=== PATIENT | female | born 1995 | race African-American/Black ===

== ENCOUNTER 2017-06-15 08:26 | Emergency (ER) | payer BC, MEDICAID ==
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
[2017-06-15 09:22] VITALS: BP 122/84
== END 2017-06-15 09:22 | disposition home or self-care (01) ==
LOC: ER 08:26
DX: M54.6 Pain in thoracic spine (principal); V86.55XA Driver of 3- or 4- wheeled all-terrain vehicle (ATV) injured in nontraffic accident, initial encounter; Y93.I9 Activity, other involving external motion

== ENCOUNTER 2017-06-25 00:35 | Emergency (ER) | payer BC ==
[2017-06-25] MEDS ORDERED: PENICILLIN G BENZATHINE 2 ML SYRG IM ONE (01:23)
[2017-06-25] MEDS ORDERED: HYDROcodone/ACETAMINOPHEN 1 EACH TABLET PO ONE (01:23)
[2017-06-25] MEDS ORDERED: predniSONE 20 MG TABLET PO ONE (01:24)
[2017-06-25] MEDS ORDERED: ALBUTEROL SULFATE/IPRATROPIUM 3 ML NEBU IH ONE ×2 (01:24→01:26)
[2017-06-25] MEDS ORDERED: HYDROcodone/ACETAMINOPHEN 1 EACH TABLET ONE (01:25)
[2017-06-25] MEDS ORDERED: AMOXICILLIN TRIHYDRATE 250 MG CAPSULE PO ONE (01:25)
[2017-06-25] MEDS ORDERED: AMOXICILLIN TRIHYDRATE 250 MG CAPSULE ONE (01:27)
[2017-06-25] MEDS ORDERED: predniSONE 20 MG TABLET ONE (01:27)
--- NOTE | 2017-06-25 01:41 | ERNOTE ---
Date of Service: 06/25/17 Time Seen by Provider: 06/25/17 01:34 Stated Complaint: SORE THROAT Presenting Symptoms:: cough, sore throat Source: patient Immunizations: IMMUNIZATION HX Immunizations Up to Date Yes History of Influenza Vaccine No Hx Pneumococcal Vaccination No Allergies/Adverse Reactions: Allergies No Known Allergies Allergy (Verified 06/25/17 01:00) Home Medications: HOME MEDICATIONS Amoxicillin Trihydrate [Amoxil] 500 mg PO Q8H #21 capsule 06/25/17 [Last Taken Unknown] predniSONE [Deltasone] 60 mg PO DAILY #5 tablet 06/25/17 [Last Taken Unknown] - History of Present Ilness Narrative: 22-year-old female comes to the emergency department complaining of coughing which started early this afternoon. She is also complaining of a sore throat. Coughing paroxysms of gotten so bad that she is unable to sleep. She has not had a fever. She doesn't have any chest pain. She has no other complaints. She has no history of asthma. She does not smoke. Review of Systems - Review of Systems Constitutional: Present: no symptoms reported EYE: Present: no symptoms reported ENT: Present: See HPI Respiratory: Present: See HPI, cough Cardiology: Present: no symptoms reported Gastrointestinal/Abdominal: Present: no symptoms reported Genitourinary: Present: no symptoms reported Musculoskeletal: Present: no symptoms reported Skin: Present: no symptoms reported Neurological: Present: no symptoms reported Endocrine: Present: no symptoms reported Hematologic/Lymphatic: Present: no symptoms reported Psych: Present: no symptoms reported All Other Systems: All systems neg except as marked - Patient's Past Medical History Patient History - Medical: No pertinent hx Patient History - Cardiac/Respiratory: No pertinent hx Patient History - Cancer: No Hx of Cancer Patient History - Surgical Procedures: No surgical history Patient History - Other: None LMP (females 10-50): last week - Social History Living Situations: home Abuse History: No History of abuse Psych History: No pertinent hx Smoking Status: Never smoker Alcohol Use: none Drug Use: none - Immunizations Immunizations Up to Date: Yes Hx Pneumococcal Vaccination: No History of Influenza Vaccine: No Physical Exam - Physical Exam General Appearance: Present: wd/wn, alert, no apparent distress Head Exam: Present: normal inspection, no evidence of injury Eye Exam: Normal inspection: bilateral, PERRL: bilateral Ears, Nose, Throat: Present: tonsillar exudate, other - patient has significant tonsillar hypertrophy. The pharynx is not very erythematous but does have tonsillar exudate. He has swollen nodes in the submandibular area Neck: Present: other - swollen nodes in the anterior chain and submandibular area Respiratory: Present: other - patient has some wheezes left side greater than right. Slightly prolonged expiratory phase Cardiovascular/Chest: Present: regular rate, rhythm, no murmur, normal peripheral pulses Gastrointestinal/Abdominal: Present: normal bowel sounds, nontender, nondistended, soft, no organomegaly Back Exam: Present: normal inspection, normal range of motion Extremity Exam: Present: normal inspection, non-tender Neurological Exam: Present: alert, oriented, normal mood/affect, no motor/ sensory deficits Skin Exam: Present: normal color, warm/dry Lymphatic Exam: Present: no adenopathy ED Progress - Vital Signs Patient's Vital Signs:: I have reviewed the patient's vital signs. Vital Signs: Vital Signs 06/25/17 06/25/17 01:00 01:27 Temperature 36.7 C Pulse Rate 104 H 85 Respiratory 18 18 Rate Blood Pressure 125/75 O2 Sat by Pulse 97 95 Oximetry - Progress/Reassessment Chief Complaint: Cough Progress:: Improved Progress Note-Subjective: 06/25/17 01:36 Slightly better after breathing treatment Departure Clinical Impression: Upper respiratory infection - Departure Disposition: Home self-care Condition: Good Instructions: Upper Respiratory Infection, Adult, [id number] Additional Instructions: As we discussed U have some mild swelling of her tonsils and there is some pus on them. This may indicate a strep infection even though the strep swab was negative. Consequently I want you to take the prescribed amoxicillin for all 7 days. You do have some wheezing in her lungs. This is indication that there is inflammation of the breathing tubes. Take the prescribed steroids to help with this. I have also given you a prescription for an inhaler which he can use to help. I really believe that your symptoms are due to a viral respiratory infection. From experience this will likely last for several weeks. The steroids may help. I want you call your family doctor and set up a follow-up appointment. Next Return for new or worrisome symptoms Referrals: Kate Berrios FNP [Primary Care Provider] - Prescriptions: Amoxicillin Trihydrate [Amoxil] 500 mg PO Q8H #21 capsule predniSONE [Deltasone] 60 mg PO DAILY #5 tablet
[2017-06-25 01:48] VITALS: BP 96/81
== END 2017-06-25 01:42 | disposition home or self-care (01) ==
LOC: ER 00:35
DX: J06.9 Acute upper respiratory infection, unspecified (principal)

== ENCOUNTER 2017-07-22 19:07 | Emergency (ER) | payer BC ==
[2017-07-22 19:17] VITALS: BP 114/79
[2017-07-22] MEDS ORDERED: HYDROmorphone HCL 1 MG/ML DISP.SYRIN IM ONE (19:46)
[2017-07-22] MEDS ORDERED: KETOROLAC TROMETHAMINE 30 MG/ML VIAL IM ONE (19:46)
[2017-07-22] MEDS ORDERED: KETOROLAC TROMETHAMINE 30 MG/ML VIAL ONE (19:50)
[2017-07-22] MEDS ORDERED: HYDROmorphone HCL 1 MG/ML DISP.SYRIN ONE (19:50)
--- NOTE | 2017-07-22 19:53 | ERNOTE ---
Medical Problem HPI - Narrative Date of Service: 07/22/17 - General Chief Complaint: General Assessment Time Seen by Provider: 07/22/17 19:46 Source: patient Exam Limitations: no limitations - Immun/Allergies/Home Medications Immunizations: IMMUNIZATION HX Immunizations Up to Date Yes History of Influenza Vaccine No Hx Pneumococcal Vaccination No Allergies/Adverse Reactions: Allergies No Known Allergies Allergy (Verified 07/22/17 19:17) Home Medications: HOME MEDICATIONS HYDROcodone/ACETAMINOPHEN [[place] 7.5-325 Tablet] 1 each PO Q4H PRN 07/22/17 [ Last Taken 07/22/17 11:00] Ibuprofen [Motrin Suspension] 15 ml PO Q6H #240 ml 07/22/17 [Last Taken Unknown] - History of Present History Narrative: Patient is a 22-year-old female who presents to the emergency room with throat pain status post tonsillectomy one week ago. Is primarily here complaining of pain in spite of taken Vicodin with poor response. She has been taking Vicodin every 4 hours. She reports pain in a moderate to severe range with no palliative or provocation factors. Timing: constant Severity: moderate Review of Systems - Review of Systems Constitutional: Present: See HPI EYE: Present: see HPI ENT: Present: See HPI, sore throat, throat swelling Respiratory: Present: See HPI Cardiology: Present: See HPI Gastrointestinal/Abdominal: Present: See HPI Genitourinary: Present: See HPI Musculoskeletal: Present: See HPI Neurological: Present: See HPI Endocrine: Present: See HPI - Patient's Past Medical History Patient History - Medical: No pertinent hx Patient History - Cardiac/Respiratory: No pertinent hx Patient History - Cancer: No Hx of Cancer Patient History - Surgical Procedures: T & A Patient History - Other: None - Social History Living Situations: home Abuse History: No History of abuse Psych History: No pertinent hx Smoking Status: Never smoker Alcohol Use: none Drug Use: none - Immunizations Immunizations Up to Date: Yes Hx Pneumococcal Vaccination: No History of Influenza Vaccine: No Physical Exam - Physical Exam General Appearance: Present: wd/wn, alert, no apparent distress Head Exam: Present: normal inspection, no evidence of injury Eye Exam: Normal inspection: bilateral, PERRL: bilateral, EOMI: bilateral Ears, Nose, Throat: Present: other - she appears to have necrotic tissue noted at the area where tonsils used to be Neck: Present: normal inspection, nontender, supple, full range of motion Respiratory: Present: no respiratory distress, normal breath sounds, no accessory muscle use Cardiovascular/Chest: Present: regular rate, rhythm, no murmur, normal peripheral pulses ED Progress - Vital Signs Patient's Vital Signs:: I have reviewed the patient's vital signs. Vital Signs: Vital Signs 07/22/17 19:11 Temperature 36.4 C L Pulse Rate 98 Respiratory 18 Rate Blood Pressure 114/79 O2 Sat by Pulse 98 Oximetry - Progress/Reassessment Chief Complaint: General Assessment Progress:: Unchanged Progress Note-Subjective: 07/22/17 19:49 I discussed the patient regarding her course. Her pain is completely expected. I will give outpatient Dilaudid 1 mg IM 1 and Toradol 30 mg IM 1. I also advised patient's in addition to the Vicodin to add ibuprofen 2-400 mg every 6 hours when necessary. - Transfer of Care Expected Disposition: Discharge Departure Clinical Impression: Pain in throat - Departure Disposition: Home self-care Condition: Stable Instructions: Tonsillectomy, Adult, Care After, [id number] Referrals: Kate Berrios FNP [Primary Care Provider] - Prescriptions: Ibuprofen [Motrin Suspension] 15 ml PO Q6H #240 ml
== END 2017-07-22 20:04 | disposition home or self-care (01) ==
LOC: ER 19:07
DX: J02.9 Acute pharyngitis, unspecified (principal); Z90.89 Acquired absence of other organs